=== PATIENT | female | born 1955 | race Caucasian/White ===

== ENCOUNTER → 2016-05-29 | Outpatient (CLI) | payer OTHER ==
[~2016-05-29] MED LIST: ADULT LOW DOSE81 MG PO; ALLERCLEAR10 MG PO; CALCIUM 600 +1 EAC3 PO; COZAAR 50MG TAB50 MG PO; DITROPAN 5 MG TA5 MG PO; GLUCOPHAGE 500500 MG PO; IMDUR ER TAB 3030 MG PO; LIPITOR TAB 2020 MG PO; LOPRESSOR 25 MG25 MG PO; NEURONTIN 300300 MG PO; NITROSTAT0.4 MG SL; PLAVIX 75 MG TA75 MG PO; PROTONIX 40 MG40 M1 PO; PROVENTIL HFA 61 INH INH; VENTOLIN INH
== END ==
LOC: HEART 5 08:59
DX: R06.00 Dyspnea, unspecified (principal); R06.02 Shortness of breath; Z87.891 Personal history of nicotine dependence
CPT/HCPCS: 94010

== ENCOUNTER → 2021-02-13 | Outpatient (CLI) | payer OTHER ==
[~2021-02-13] MED LIST changes: +ZOFRAN ODT 4 MG4 MG PO
== END ==
LOC: MAMO 10:41
DX: Z12.31 Encounter for screening mammogram for malignant neoplasm of breast (principal)
CPT/HCPCS: 77063; 77067

== ENCOUNTER → 2021-03-16 | Outpatient (CLI) | payer OTHER | LOC: KOH-I 12:36 | DX: Z87.891 Personal history of nicotine dependence (principal) | CPT/HCPCS: 71271 ==